=== PATIENT | female | born 1950 | race Two or more races ===

== ENCOUNTER 2017-12-06 01:35 | Emergency (ER) | payer OTHER ==
[~2017-12-06] VITALS: Ht 157.5 cm; Wt 68.0 kg
== END 2017-12-06 10:05 | disposition home or self-care (01) ==
LOC: ER 01:35
DX: S00.03XA Contusion of scalp, initial encounter (principal); S20.211A Contusion of right front wall of thorax, initial encounter; E83.51 Hypocalcemia; W10.8XXA Fall (on) (from) other stairs and steps, initial encounter; Y93.89 Activity, other specified; Y92.018 Other place in single-family (private) house as the place of occurrence of the external cause; Y99.8 Other external cause status